=== PATIENT | female | born 1950 | race Caucasian/White ===

== ENCOUNTER 2017-05-04 15:33 | Emergency (ER) | payer BC ==
[2017-05-04] MEDS ORDERED: LIDOCAINE/EPI 1% 1:100,000 20 ML VIAL ONE (16:05)
[2017-05-04] MEDS ORDERED: LIDOCAINE HCL/PF 1% 30 ML VIAL ONE (16:05)
[2017-05-04] MEDS ORDERED: ACETAMINOPHEN 325 MG TABLET PO ONE (16:54)
[2017-05-04] MEDS ORDERED: DIPH,PERTUSS(ACELL),TET VAC/PF 0.5 ML VIAL IM ONE (16:56)
--- NOTE | 2017-05-04 16:56 | ER PHYSICIAN DOCUMENTATION ---
Physician Documentation [facility] Name:Katina aMgana Age:67 yrs Sex:Female :1950 Arrival Date:05/04/2017 Time:15:33 Bed4 Private MD: Ron Todd Disposition: 05/05 21:55 Chart complete. tl1 Disposition: 05/04/17 16:33 Discharged to Home/Self Care. Impression: Chin Laceration, Thumb Sprain. - Condition is Good. - Discharge Instructions: ABRASION, CHIN LACERATION, Suture or Tape, SPRAIN HAND, Acute Brain Injuries - HEAD INJURY, No Wake-Up (Adult). - Medical Reconciliation form form. - Follow up: Private Physician; When: 4- 6 days; Reason: Staple/Suture removal. - Problem is new. - Symptoms have improved. HPI: 05/04 15:38 This 67 yrs old Female presents to ER with complaints of Laceration To Chin, tl1 Thumb Injury. 15:38 The laceration(s) is(are) located on the Left first web space. The laceration(s) tl1 is(are) located on the chin. Onset: The symptom(s)/episode began/occurred suddenly, just prior to arrival. Onset: The symptom(s)/episode began/occurred just prior to arrival. Associated signs and symptoms: The patient has no apparent associated signs or symptoms. Stumbled while hiking, striking her chin on a sharp rock. No LOC.Denies h/a, neck pain, chest pain, abdominal pain . She did injure her left thumb and is concerned about a retained foreign body.. Historical: - Allergies: No known drug Allergies; - Home Meds: 1. None - PMHx: None; - PSHx: None; - Tetanus: < 10 years. - Ebola Screening: : Patient negative for fever greater than or equal to 101.5 degrees Fahrenheit, and additional compatible Ebola Virus Disease symptoms. - Immunization history: Flu Vaccine < 1 year. - Social history: Smoking status: Patient states was never smoker of tobacco. ROS: 16:34 Skin: Positive for laceration(s). tl1 16:34 All other systems are negative. Exam: 16:35 Constitutional: This is a well developed, well nourished patient who is awake, alert, tl1 and in no acute distress. 16:35 Head/face: Noted is no obvious of injury or deformity except a laceration(s), that is deep, that is linear, 2.0 cm(s), of the chin. 16:35 Eyes: Pupils: equal, round, and reactive to light and accomodation. 16:35 ENT: Exam is negative for acute changes. 16:35 Neck: External neck: is normal, C-spine: vertebral tenderness, is not appreciated. 16:35 Cardiovascular: Rate: normal. 16:35 Respiratory: Respirations: normal, Breath sounds: are normal. 16:35 Abdomen/GI: Inspection: abdomen appears normal, Palpation: abdomen is soft and non-tender. 16:35 Musculoskeletal/extremity: Extremities: grossly normal except: noted in the chin: 16:35 Skin: Appearance: normal except for affected area, injury, abrasion(s), very small abrasion noted, of the Left first web space. 16:35 Neuro: Exam negative for acute changes. Vital Signs: 15:53 BP 134 / 86; Pulse 85; Resp 17; Temp 98.0(O); Pulse Ox 95% on R/A; Weight 48.08 kg; rh Height 5 ft. 4 in. (162.56 cm); Pain 3/10; 15:53 Body Mass Index 18.19 (48.08 kg, 162.56 cm) rh Laceration: 16:40 Wound Repair of 2.0cm ( 0.8in ) subcutaneous laceration to chin. Irregularly shaped.. tl1 Distal neuro/vascular/tendon intact. Anesthesia: Wound infiltrated with 2 mls of 1% lidocaine w/ Epi. Wound prep: Extensive cleansing, Copious irrigation. Skin closed with 5 5-0 Ethilon using Interrupted sutures. Dressed with Bacitracin. Patient tolerated well. MDM: 15:37 Patient medically screened. tl1 16:38 Data reviewed: vital signs, nurses notes, and as a result, I will admit patient. tl1 Counseling: I had a detailed discussion with the patient and/or guardian regarding: the historical points, exam findings, and any diagnostic results supporting the discharge/admit diagnosis, lab results, radiology results, the need for outpatient follow up, for a recheck, of today's symptoms. Response to treatment: the patient's symptoms have markedly improved after treatment, and as a result, I will discharge patient. 05/05 07:10 Order name: HAND; [address] [place] [id number]; Complete Time: 21:54 EDMS 05/05 21:54 Interpretation: No foreign body. See radiologist report. 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 rh Exp: 01/05/2019. Lot #: [id number]. } Route: IM; Site: left deltoid; 16:54 Follow up: Response: No adverse reaction rh 16:54 Drug: Tylenol 975 mg; Route: PO; rh 16:54 Follow up: Response: No adverse reaction rh Signatures: Ron Curiel MD MD tl1 Maria Alejandra Kaiser
--- NOTE | 2017-05-04 16:56 | ER NURSING DOCUMENTATION ---
Nurse's Notes [facility] Name:Katina Magana Age:67 yrs Sex:Female :1950 Arrival Date:05/04/2017 Time:15:33 Bed4 Private MD: Diagnosis:Chin Laceration;Thumb Sprain Presentation: 05/04 15:35 Acuity: AMI 3 15:51 Presenting complaint: Patient states: Pt was walking down a trail and tripped on a rock, she fell and landed on the left hand, left knee and her chin. Pt did not lose consciousness and denies MATHEW. Pt denies jaw pain. Pt has laceration to the chin. Transition of care: Home. Complicating Factors: There are no complicating factors for this patient. 15:51 Method Of Arrival: Private Vehicle Triage Assessment: 15:52 General: Appears in no apparent distress, Behavior is cooperative. Pain: Complains of rh pain in chin and left hand. EENT: Oral mucosa is moist. Neuro: Level of Consciousness is awake, alert, obeys commands, Oriented to person, place, time, event. Neuro: Denies headache. Cardiovascular: Capillary refill < 3 seconds. Respiratory: Airway is patent. GI: Denies nausea. : No deficits noted. Derm: Skin is intact, is healthy with good turgor, Skin is pink, warm & dry. Musculoskeletal: Circulation, motion, and sensation intact Range of motion intact in all extremities. Injury Description: Laceration sustained to chin is clean, 0.5 to 2.5 cm long, was sustained 1-2 hours ago. is bleeding a small amount. Historical: - Allergies: No known drug Allergies; - Home Meds: 1. None - PMHx: None; - PSHx: None; - Tetanus: < 10 years. - Ebola Screening: : Patient negative for fever greater than or equal to 101.5 degrees Fahrenheit, and additional compatible Ebola Virus Disease symptoms. - Immunization history: Flu Vaccine < 1 year. - Social history: Smoking status: Patient states was never smoker of tobacco. Screenin:54 Infectious Disease Risk None. Abuse screen: Denies threats or abuse. Denies injuries rh from another. Nutritional screening: No deficits noted. Assessment: 15:54 See Triage Assessment done by same RN. Vital Signs: 15:53 BP 134 / 86; Pulse 85; Resp 17; Temp 98.0(O); Pulse Ox 95% on R/A; Weight 48.08 kg; rh Height 5 ft. 4 in. (162.56 cm); Pain 3/10; 15:53 Body Mass Index 18.19 (48.08 kg, 162.56 cm) rh ED Course: 15:35 Patient arrived in ED. dp 15:35 Maria Alejandra Kaiser is Primary Nurse. rh 15:35 Triage completed. rh 15:37 Ron Curiel MD is Attending Physician. tl1 15:[address] Cerna notified. Dr. Curiel notified. rh 15:54 Port Xray Completed. dnn 15:54 Valuables Remains with patient Patient has correct armband on for positive rh identification. Placed in gown. Bed in low position. Call light in reach. Side rails up X 1. 16:00 Assist Provider Assist provider with laceration repair on chin that was 2.5 cm. or less rh using sutures. Set up tray. Performed by Ron Curiel MD Dressed with band aid, Patient tolerated well. 16:08 Wound care to laceration located on chin was cleaned with soap and water, Irrigation rh Normal Saline Patient tolerated well. 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 rh Exp: 01/05/2019. Lot #: [id number]. } Route: IM; Site: left deltoid; 16:54 Follow up: Response: No adverse reaction rh 16:54 Drug: Tylenol 975 mg; Route: PO; rh 16:54 Follow up: Response: No adverse reaction rh Outcome: 16:33 Discharge ordered by . tl1 16:54 Discharged to home ambulatory, with significant other. rh 16:54 Condition: improved 16:54 Discharge Assessment: Patient awake, alert and oriented x 3. No cognitive and/or functional deficits noted. Patient verbalized understanding of disposition instructions. 16:54 Discharge instructions given to patient, Instructed on discharge instructions, follow up and referral plans. [facility] wound care, Demonstrated understanding of instructions, medications. 16:55 Patient left the ED. 05/05 08:43 Discharge F/U Call: Unable to reach: no answer Signatures: Rubin Cage Tom, MD MD tl1 Maria Alejandra Kaiser Rupali Escobar
--- NOTE | 2017-05-04 20:15 | RADIOLOGY REPORT ---
Three views of the left hand demonstrate no radiopaque foreign body or displaced injury. Degenerative changes of the wrist and interphalangeal joints are noted. IMPRESSION: No radiopaque foreign body or displaced injury. If clinically indicated, further evaluation and/or follow-up may be of benefit. YAND
== END 2017-05-04 16:56 | disposition home or self-care (01) ==
LOC: ER 15:33
DX: S01.81XA Laceration without foreign body of other part of head, initial encounter (principal); S63.92XA Sprain of unspecified part of left wrist and hand, initial encounter; S60.512A Abrasion of left hand, initial encounter; W01.0XXA Fall on same level from slipping, tripping and stumbling without subsequent striking against object, initial encounter; Y92.838 Other recreation area as the place of occurrence of the external cause; Y93.01 Activity, walking, marching and hiking; Z23 Encounter for immunization
CPT/HCPCS: 12051; 90471; 99284